=== PATIENT | female | born 1940 | race Caucasian/White ===

== ENCOUNTER → 2023-12-04 11:32 | Outpatient (REF) | payer MEDICARE, OTHER, SELFPAY ==
[2023-12-04 13:44] LABS: % Basophils 0.8 % (0-2); % Eosinophils 4.3 % (0-6); % Immature Granulocytes 0.2 % (0-0.5); % Lymphocytes 32.6 % (20.5-51.1); % Monocytes 12.3 % (1.7-9.3); % Neutrophils 49.8 % (42.2-75.2); Absolute Eosinophils 0.2 10^3/uL (0-0.7); Absolute Lymphocytes 1.7 10^3/uL (1.2-3.4); Absolute Monocytes 0.6 10^3/uL (0.1-0.6); Absolute Neutrophils 2.5 10^3/uL (1.4-6.5); Hematocrit 36.8 % (37.0-47.0); Hemoglobin 12.4 g/dL (12.0-16.0); Mean Corp Hgb Conc. 33.7 g/dL (33.0-37.0); Mean Corpuscular Hgb 31.7 pg (27.0-31.0); Mean Corpuscular Volume 94.1 fL (81.0-99.0); Mean Platelet Volume 10.3 fL (7.4-10.4); Nucleated Red Blood Cells % 0 %; Platelet Count 264 10^3/uL (130-400); Red Blood Cell Count 3.91 10^6/uL (4.20-5.40); Red Cell Dist. Width 13.4 % (11.5-14.5); White Blood Cell Count 5.1 10^3/uL (4.8-10.8)
[2023-12-04 13:50] LABS: ALT (SGPT) < 10 U/L (0-35); AST (SGOT) 25 U/L (14-36); Albumin 4.1 g/dl (3.5-5.0); Alkaline Phosphatase 68 U/L (38-126); Blood Urea Nitrogen 20 mg/dl (7-17); Calcium 9.5 mg/dl (8.4-10.2); Carbon Dioxide 32 mmol/L (22-30); Chloride 94 mmol/L (98-107); Glucose 101 mg/dl (70-99); HDL Cholesterol 53 mg/dl; LDL Cholesterol, Calculated 96 mg/dl; Potassium 4.3 mmol/L (3.5-5.1); Sodium 133 mmol/L (135-145); Total Bilirubin 0.6 mg/dl (0.2-1.3); Total Cholesterol 174 mg/dl (50-199); Total Protein 7.3 g/dl (6.3-8.2); Triglyceride 127 mg/dl (10-149); Very Low Density Lipoprotein 25 mg/dl (0-30); eGFR > 60.00
[2023-12-04 14:28] LABS: Glycohemoglobin (HgbA1c) 6.2 % (4.0-5.6)
== END ==
LOC: OLABPV 11:32
PROVIDERS: ATTENDING PHYSICIAN Physician Assistant
DX: E78.00 Pure hypercholesterolemia, unspecified (principal); K21.9 Gastro-esophageal reflux disease without esophagitis; I10 Essential (primary) hypertension; F41.9 Anxiety disorder, unspecified; F51.01 Primary insomnia; R73.03 Prediabetes; H35.50 Unspecified hereditary retinal dystrophy
CPT/HCPCS: 36415; 80053; 80061; 83036; 85025

== ENCOUNTER 2023-12-06 05:11 | Inpatient (IN) | payer MEDICARE, OTHER, SELFPAY ==
[2023-12-06] VITALS (25 sets, daily range): BP systolic 91–180; BP diastolic 48–91; PULSE 70–84; O2SAT 95–96; BMI 26.3; BMI 24.7
[2023-12-06 01:28] LABS: % Basophils 0.6 % (0-2); % Eosinophils 2.1 % (0-6); % Immature Granulocytes 0.3 % (0-0.5); % Monocytes 5.8 % (1.7-9.3); % Neutrophils 66.2 % (42.2-75.2); Absolute Basophils 0.1 10^3/uL (0-0.2); Absolute Eosinophils 0.2 10^3/uL (0-0.7); Absolute Lymphocytes 2.6 10^3/uL (1.2-3.4); Absolute Monocytes 0.6 10^3/uL (0.1-0.6); Absolute Neutrophils 6.8 10^3/uL (1.4-6.5); Hematocrit 39.6 % (37.0-47.0); Hemoglobin 14.2 g/dL (12.0-16.0); Mean Corp Hgb Conc. 35.9 g/dL (33.0-37.0); Mean Corpuscular Hgb 31.8 pg (27.0-31.0); Mean Corpuscular Volume 88.8 fL (81.0-99.0); Mean Platelet Volume 9.7 fL (7.4-10.4); Nucleated Red Blood Cells % 0 %; Platelet Count 264 10^3/uL (130-400); Red Blood Cell Count 4.46 10^6/uL (4.20-5.40); White Blood Cell Count 10.2 10^3/uL (4.8-10.8)
[2023-12-06 01:40] LABS: Lactic Acid 2.3 mmol/L (0.7-2.0)
[2023-12-06 01:41] LABS: ALT (SGPT) 13 U/L (0-35); AST (SGOT) 39 U/L (14-36); Albumin 4.1 g/dl (3.5-5.0); Alkaline Phosphatase 75 U/L (38-126); Blood Urea Nitrogen 25 mg/dl (7-17); Calcium 9.2 mg/dl (8.4-10.2); Carbon Dioxide 26 mmol/L (22-30); Chloride 97 mmol/L (98-107); Estimated Creatinine Clearance 39 ml/min; Glucose 152 mg/dl (70-99); Lipase 88 U/L (23-300); Potassium 3.8 mmol/L (3.5-5.1); Sodium 130 mmol/L (135-145); Total Bilirubin 0.5 mg/dl (0.2-1.3); Total Protein 7.3 g/dl (6.3-8.2); eGFR 55.21
[2023-12-06] MEDS: NSS 1000 IV (01:48)
--- NOTE | 2023-12-06 01:49 | ED.GENMED ---
History of Present Illness
<RAZA Hernandez - Last Filed: 12/06/23 05:44>
General
Chief Complaint: Abdominal Symptoms
Source: patient
Exam Limitations: none
Time Seen by Provider: 12/06/23 01:30
Nursing documentation reviewed up to this point in time: agreed with
Travel History
Have you had any contact with someone who has COVID-19?: No
Do you have any symptoms of coronavirus? Fever > 100 degrees, chills, cough, shortness of breath, sore throat, loss of taste or smell, muscle aches, or headache?: No
History of Present Illness
History of Present Illness:
This is a 83 year old female with HTN, HLD, diverticulosis, GERD, and a history of colitis who presents to the ED from [facility] after she found on the floor covered in feces. On arrival, she was hypotensive at 0/40 and received
700cc NSS L AC 16G. She states she has been feeling constipated and admits taking a Dulcolax. Last bowel movement was 2 days prior to today's episode. She had a sudden urge to defecate followed by a watery diarrhea. She was able to make it to the
toilet, however found herself on the floor. She had a syncopal episode. She crawled to her bed to call for help. She does not recall hitting her head, but is unable to confirm. She denies any headaches. She has had multiple episodes of known
colitis and has been evaluated and treated here. She denies any abdominal pain, nausea, vomiting, fevers, chills, bloody stools.
Past History
<RAZA Hernandez - Last Filed: 12/06/23 05:44>
Past History
ED Past Medical History: GERD, HTN, Hypercholesterolemia, Other (Diverticulosis) and Other (Colitis past nonspecific)
ED Past Surgical History: Orthopedic (Carpal tunnel surgery, left wrist tenosynovitis surgery) and Other (Benign breast cyst removed from the left breast, Vanessa stayed stripping)
Social History
Tobacco: Non-smoker
Alcohol: None
Personal:
Living: with family
Family History
Family History: Negative Hypertension or Early CAD
Review of Systems
<RAZA Hernandez - Last Filed: 12/06/23 05:44>
Review of Systems
Allergies reviewed?: Yes
All Other Systems: Not applicable
Constitutional: Reports no symptoms
EENT: Reports no symptoms
Respiratory: Reports no symptoms
Cardiac: Reports no symptoms
ABD/GI: Reports diarrhea and constipated
: Reports no symptoms
Musculoskeletal: Reports no symptoms
Skin: Reports no symptoms
Neurological: Reports other (Syncope)
Endocrine: Reports no symptoms
Hematologic/Lymphatic: Reports no symptoms
Psychiatric: Reports no symptoms
Phy Exam
<ST DavidVA - Last Filed: 12/06/23 05:44>
General Physical Exam
General Presentation: well appearing and no apparent distress
General Skin: warm and dry
General Habitus: normal and elderly
General Mental: alert
General Hydration: appears well hydrated
ENT Exam
ENT Exam: EOMI, pharynx normal, neck supple and normocephalic
Eye Exam
Eye Exam: PERRL, cornea clear and conjunctiva normal
Cardiovascular Exam
Cardiovascular Exam: regular rate/rhythm, no edema, no murmur and normal peripheral pulses
Pulmonary Exam
Pulmonary Exam: lungs clear, no respiratory distress, no rales, no crackles, no rhonchi, no stridor, no wheezing and no cough
Gastrointestinal Exam
Gastrointestinal Exam: normal bowel sounds, non tender, soft, no organomegaly, no pulsatile mass and non distended
Neurological Exam
Neurological Exam: alert, oriented x3, no motor deficits and speech normal
Musculoskeletal Exam
Musculoskeletal Exam: full ROM and no edema
Skin Exam
Skin Exam: normal color, warm/dry, no rash and no petechia
Psychiatric Exam
Psychiatric Exam: normal mood/affect
Course
<RAZA Hernandez - Last Filed: 12/06/23 05:44>
Orders/Labs/Results
Orders:
Orders
12/06/23 01:20
CBC/With Diff [Complete Blood Count/With Diff] Urgent
CMP [Comprehensive Metabolic Panel] Urgent
Lactate Level [Lactic Acid] Urgent
Lipase Urgent
Magnesium Urgent
12/06/23 01:24
EKG [Electrocardiogram (*1)] Urgent
Reason for Study: Syncope
EKG- Treatment ONCE
12/06/23 01:48
0.9% Sodium Chloride 1000 ml [Nss] 1,000 ml IV BOLUS
12/06/23 01:51
STOOL [C difficile Antigen & Toxins] Urgent
NIKKI Source: Feces/Stool
Specimen Description:
Stool Culture Urgent
NIKKI Source: Feces/Stool
Specimen Description:
12/06/23 01:54
CT Abd/pelvis W Iv Cont Urgent
Comment:
Reason For Exam: acute severe diarrhea, hypotention, syncope
CT Head W/o Iv Contrast Urgent
Comment:
Reason For Exam: syncope-(?)head injury
12/06/23 03:49
Piperacillin/Tazo 3.375 Gram [Zosyn] 3.375 gram in 50 ml IV NOW
12/06/23 04:40
Admit/Transfer Patient As Directed
Co-Sign Provider:
Level of Care: Inpatient admission
Assign to:: Telemetry
Physician / Group: Corie Gordon
Diagnosis: colitis, syncope
Reason for Telemetry: Syncope
Date to Stop Telemetry: 12/08/23
Time to Stop Telemetry: 11:00
Reason for Hospitalization: hypotension, colitis
Expected length of stay greater than two midnights?: Yes
ELOS- Estimated Length of Stay in days: 3
I certify the patient meets the requirements for IP care: Yes
12/06/23 04:49
Code Status As Directed
Resuscitation Status: Do not resuscitate
Reached after discussion with pt or family/Healthcare POA: Yes
DNR Bracelet Application ONCE
12/06/23 04:54
Add On- LAB Routine
Tests Added?: magnesium
12/06/23 05:32
Acetaminophen [Tylenol] 650 mg PO Q4HPRN PRN
Lactated Ringers [Lr] 1,000 ml IV 80 mls/hr
Lorazepam [Ativan] 0.5 mg PO PRN PRN
12/06/23 05:32
Activity As Directed
Activity Level: As Tolerated
Orthostatic Vital Signs As Directed
Orthostatic VS Frequency: Daily
Vital Signs As Directed
Frequency: Per unit guidelines
Ot Eval And Treat Routine
Pt Eval And Treat Routine
Activity Level: As Tolerated
DX Deep Vein Thrombosis Video Routine
12/06/23 Breakfast
Clear Liquid
At Your Request: Limited Participation
Basic Metabolic Panel IN AM
Complete Blood Count/With Diff IN AM
Lactate Level [Lactic Acid] Q6H
Magnesium IN AM
Troponin I Q6H
12/06/23 08:00
Escitalopram Oxalate [Lexapro] 10 mg PO DAILY
Saccharomyces Boulardii [Florastor] 250 mg PO DAILY
Timolol Maleate 1 drop LEFT EYE BID
12/06/23 10:00
Ampicillin/Sulbactam 3 G [Unasyn] 3 gm 0.9% Sodium Chloride 100 ml [Nss] 100 ml IV Q6H
12/06/23 12:00
Lactate Level [Lactic Acid] Q6H
Troponin I Q6H
12/06/23 18:00
Lactate Level [Lactic Acid] Q6H
Troponin I Q6H
Enoxaparin Sodium [Lovenox] 40 mg SC QPM
12/06/23 22:00
Famotidine [Pepcid] 40 mg PO HS
simvastatin 20 mg PO HS
12/08/23 11:00
DC Protocol for Telemetry ONCE
Abnormal Lab Results
12/06/23
01:20
MCH 31.8 H pg
(27.0-31.0)
Absolute Neuts (auto) 6.8 H 10^3/uL
(1.4-6.5)
Sodium 130 L mmol/L
(135-145)
Chloride 97 L mmol/L
(98-107)
BUN 25 H mg/dl
(7-17)
Glucose 152 H mg/dl
(70-99)
Lactic Acid 2.3 H mmol/L
(0.7-2.0)
AST 39 H U/L
(14-36)
12/06/23 01:20
12/06/23 01:20
Vital Signs
Initial and Last Documented VS:
Initial Vital Signs
Temp Pulse Resp BP Pulse Ox
96.2 F L 62 18 100/59 100
12/06/23 00:59 12/06/23 00:59 12/06/23 00:59 12/06/23 00:59 12/06/23 00:59
Last Documented Vital Signs
Temp Pulse Resp BP Pulse Ox
96.2 F L 58 13 135/65 96
12/06/23 00:59 12/06/23 05:15 12/06/23 05:15 12/06/23 05:05 12/06/23 05:15
<Alida Kumar, DO - Last Filed: 12/06/23 03:53>
Orders/Labs/Results
Orders:
Orders
12/06/23 01:20
CBC/With Diff [Complete Blood Count/With Diff] Urgent
CMP [Comprehensive Metabolic Panel] Urgent
Lactate Level [Lactic Acid] Urgent
Lipase Urgent
Magnesium Urgent
12/06/23 01:24
EKG [Electrocardiogram (*1)] Urgent
Reason for Study: Syncope
EKG- Treatment ONCE
12/06/23 01:48
0.9% Sodium Chloride 1000 ml [Nss] 1,000 ml IV BOLUS
12/06/23 01:51
STOOL [C difficile Antigen & Toxins] Urgent
NIKKI Source: Feces/Stool
Specimen Description:
Stool Culture Urgent
NIKKI Source: Feces/Stool
Specimen Description:
12/06/23 01:54
CT Abd/pelvis W Iv Cont Urgent
Comment:
Reason For Exam: acute severe diarrhea, hypotention, syncope
CT Head W/o Iv Contrast Urgent
Comment:
Reason For Exam: syncope-(?)head injury
12/06/23 03:49
Piperacillin/Tazo 3.375 Gram [Zosyn] 3.375 gram in 50 ml IV NOW
12/06/23 04:40
Admit/Transfer Patient As Directed
Co-Sign Provider:
Level of Care: Inpatient admission
Assign to:: Telemetry
Physician / Group: Corie Gordon
Diagnosis: colitis, syncope
Reason for Telemetry: Syncope
Date to Stop Telemetry: 12/08/23
Time to Stop Telemetry: 11:00
Reason for Hospitalization: hypotension, colitis
Expected length of stay greater than two midnights?: Yes
ELOS- Estimated Length of Stay in days: 3
I certify the patient meets the requirements for IP care: Yes
12/06/23 04:49
Code Status As Directed
Resuscitation Status: Do not resuscitate
Reached after discussion with pt or family/Healthcare POA: Yes
DNR Bracelet Application ONCE
12/06/23 04:54
Add On- LAB Routine
Tests Added?: magnesium
12/06/23 05:32
Acetaminophen [Tylenol] 650 mg PO Q4HPRN PRN
Lactated Ringers [Lr] 1,000 ml IV 80 mls/hr
Lorazepam [Ativan] 0.5 mg PO PRN PRN
12/06/23 05:32
Activity As Directed
Activity Level: As Tolerated
Orthostatic Vital Signs As Directed
Orthostatic VS Frequency: Daily
Vital Signs As Directed
Frequency: Per unit guidelines
Ot Eval And Treat Routine
Pt Eval And Treat Routine
Activity Level: As Tolerated
DX Deep Vein Thrombosis Video Routine
12/06/23 Breakfast
Clear Liquid
At Your Request: Limited Participation
Basic Metabolic Panel IN AM
Complete Blood Count/With Diff IN AM
Lactate Level [Lactic Acid] Q6H
Magnesium IN AM
Troponin I Q6H
12/06/23 08:00
Escitalopram Oxalate [Lexapro] 10 mg PO DAILY
Saccharomyces Boulardii [Florastor] 250 mg PO DAILY
Timolol Maleate 1 drop LEFT EYE BID
12/06/23 10:00
Ampicillin/Sulbactam 3 G [Unasyn] 3 gm 0.9% Sodium Chloride 100 ml [Nss] 100 ml IV Q6H
12/06/23 12:00
Lactate Level [Lactic Acid] Q6H
Troponin I Q6H
12/06/23 18:00
Lactate Level [Lactic Acid] Q6H
Troponin I Q6H
Enoxaparin Sodium [Lovenox] 40 mg SC QPM
12/06/23 22:00
Famotidine [Pepcid] 40 mg PO HS
simvastatin 20 mg PO HS
12/08/23 11:00
DC Protocol for Telemetry ONCE
Abnormal Lab Results
12/06/23
01:20
MCH 31.8 H pg
(27.0-31.0)
Absolute Neuts (auto) 6.8 H 10^3/uL
(1.4-6.5)
Sodium 130 L mmol/L
(135-145)
Chloride 97 L mmol/L
(98-107)
BUN 25 H mg/dl
(7-17)
Glucose 152 H mg/dl
(70-99)
Lactic Acid 2.3 H mmol/L
(0.7-2.0)
AST 39 H U/L
(14-36)
12/06/23 01:20
12/06/23 01:20
Vital Signs
Initial and Last Documented VS:
Initial Vital Signs
Temp Pulse Resp BP Pulse Ox
96.2 F L 62 18 100/59 100
12/06/23 00:59 12/06/23 00:59 12/06/23 00:59 12/06/23 00:59 12/06/23 00:59
Last Documented Vital Signs
Temp Pulse Resp BP Pulse Ox
96.2 F L 58 13 135/65 96
12/06/23 00:59 12/06/23 05:15 12/06/23 05:15 12/06/23 05:05 12/06/23 05:15
<RAZA Hernandez - Last Filed: 12/06/23 05:44>
MDM/Problems Addressed
Differential Diagnosis Includes:
Ischemic colitis, acute mesenteric colitis, gastroenteritis, gastritis
<RAZA Hernandez - Last Filed: 12/06/23 05:44>
*Critical Care Note
Total Time (30-74mins, 75-104mins- exclusive of procedures): Not Applicable
<Alida Kumar DO - Last Filed: 12/06/23 03:53>
*Radiology
Radiology exam reviewed: radiology read reviewed
*Pulse Oximetry
Patient hypoxic: no
*EKG
Interpreted by ED Provider?: Yes
Comparison EKG: no changes (Unchanged from previous 2018)
Rate: normal
Rhythm: sinus
[place]: normal axis
Interval: normal interval
QRS Pattern: normal QRS
Ischemia: no ischemia
*Waste Management Recycling Technician Interpretation
Rate: normal
Interpretation: normal
Rhythm: sinus
ED Attending Note
<RAZA Hernandez - Last Filed: 12/06/23 05:44>
-
Portions of this chart may have been created with voice recognition software.� Occasional wrong word or��sound alike� substitutions may have occurred due to the inherent limitations of voice recognition software.
<Alida Kumar DO - Last Filed: 12/06/23 03:53>
ED Attending Note
Patient seen and examined by attending physician: Yes
I performed the substantive portion of visit, reviewed & personally made and approve the management plan that is documented in note by myself or DANE.: Yes
I performed a history and physical exam of patient and discussed management with resident, I reviewed resident's note and agree with documented findings and plan of care.: Yes
ED Attending Note:
This is an 83-year-old woman who resides in independent living at [facility]. She has history of hypertension, hyperlipidemia and previous hospitalizations for acute colitis most recently 2018.
She admits to feeling perhaps somewhat constipated yesterday after not having a bowel movement for 2 days and took 1 dose of stool softener. Tonight she developed acute nonbloody diarrhea accompanied with lightheadedness and suffered a syncopal
episode while sitting on the toilet. She arrives via EMS after being found lying on the floor of the bathroom, hypotensive with prehospital blood pressure 50/40. IV established and she received 700 cc normal saline bolus prehospital.
Patient does not believe she struck her head, she denies headache, denies neck nor back pain, denies chest pain or shortness of breath. She denies fever nor chills. She does admit to intermittent mild abdominal discomfort but denies abdominal
pain. She denies hematochezia, denies nausea nor vomiting.
No recent antibiotic use nor recent travel.
No known close contacts with similar symptoms.
According to ED nursing staff patient has passed exorbitant amount of liquid nonbloody stool.
GENERAL: 83-year-old woman appears her stated age, awake and alert, oriented x 3, moderately ill in appearance. Easily communicative.
EYE: anicteric. The head is normocephalic, atraumatic.
NECK: Supple, nontender, no meningismus, no significant adenopathy.
ENT: oral mucosa is moist. No rhinorrhea. TMs are clear bilaterally.
CARDIAC: Regular rate and rhythm. no murmur.
LUNGS: Clear breath sounds bilaterally, no acute respiratory distress, no wheezes/rales/rhonchi
ABDOMEN: Soft, nondistended, without focal tenderness, no r/g, no cvat. normoactive BS.
NEUROLOGICAL: Alert and oriented x3, no focal neuro deficits.
SKIN: Warm and dry, normal color, skin intact. No rash.
MUSCULOSKELETAL: No C/C/E. peripheral pulses are full and equal b/l. No palpable tenderness.
PSYCH: Normal and appropriate interaction.
Concern for acute colitis, gastroenteritis, ischemic bowel. Concern for acute dehydration/acute kidney injury, electrolyte abnormality. Concern for hypovolemic shock, septic shock.
Will initiate IV fluid resuscitation and plan for CT abdomen pelvis with IV contrast.
Due to syncopal event, advanced age and unclear history of head injury will check CT of the head as well.
Syncope appears vasovagal/hypovolemia in nature but must consider tacky arrhythmia, will continue cardiac cath tech.
Will check stool cultures.
Due to continued diarrhea, syncope, hypotension/significantly abnormal vital signs patient will require acute hospitalization.
12/06/2023 0350 AM
Blood pressure is markedly improved after IV fluid bolus.
No further diarrhea since my initial evaluation and abdomen is soft without appreciable tenderness.
CAT scan shows acute gastroenteritis/colitis with diarrhea. No obstruction or perforation. Diffuse aortic atherosclerotic disease.
Will initiate IV antibiotics for potential infectious colitis.
Lactic acid mildly elevated at 2.3. There is certainly some concern for ischemic bowel but enteritis seems global and not watershed in nature.
Will continue IV fluids and admit to hospitalist service.
Discharge Plan
Departure
Patient Disposition: Admit
Date of Disposition: 12/06/23
Time of Disposition: 03:53
Admit to doctor: Evan
Presentation/result/management discussed w/ accepting MD/DO: Hospitalist
Condition: Serious
Discharge Problem:
Acute colitis, Syncope
Interventions
Interventions:
*Risk Screen - Suicide Last Done: 12/06/23 00:59
*General Assessment Last Done: 12/06/23 00:59
*Neglect/Abuse Screening Last Done: 12/06/23 00:59
ED- Fall Risk Assessment Last Done: 12/06/23 01:30
*ED COVID-19 Vaccine History Last Done: 12/06/23 01:38
*Nursing Disposition Last Done: 12/06/23 05:37
SX-Jtajam-Bpemlbcsvf Assessment Last Done: 12/06/23 01:30
Discharge Date and Time
Discharge Date/Time: 12/06/23 05:38
--- NOTE | 2023-12-06 01:56 | EDRN ---
Spoke with pts son Kulwinder on the phone and updated on pts condition.
[2023-12-06] MEDS: ZOSYN 50 IV (04:03)
--- NOTE | 2023-12-06 04:20 | HPS.HSE ---
Family Physician
-
Family Physician: Mitzy Herron
Chief Complaint
-
gastroenteritis, syncope
History of Present Illness
Ms. Rosemary Bob is a 83 yo woman with hx HTN, HLD, GERD presents from [facility] after a syncopal episode. Patient was found on floor in feces.
Patient states she was feeling well until 10 PM at night when started to have abdominal upset. She went to the bathroom and had a bowel movement but then passed out. She was able to crawl to her bed and then call for help. Denies preceding chest
pain or palpitations.
No nausea or vomiting. Continues to have abdominal discomfort but denies significant pain. No fevers. She reports chills and diaphoresis during episode. No shortness of breath.
Medical History
Past Medical History
Past Medical History: Reports GERD, HTN and Hypercholesterolemia
Past Surgical History: Reports Orthopedic
Social History
Tobacco: Non-smoker
Alcohol: None
Family History
Family History: Not pertinent
Allergies / Home Medications
Allergies reflects when Allergies were last updated in [employer].
Home Medications with original date entered in [employer]
Allergy/Medication List:
Allergies
Allergy/AdvReac Type Severity Reaction Status Date / Time
No Known Allergies Allergy Verified 12/06/23 01:09
Home Medications
Multiple Vitamins 1 tab PO DAILY 01/12/11
famotidine 40 mg tablet 40 mg PO HS 01/12/11
hydrochlorothiazide 25 mg tablet 25 mg PO DAILY 01/12/11
lisinopril 20 mg tablet 40 mg PO DAILY 01/12/11
simvastatin 20 mg tablet 20 mg PO HS 01/12/11
Timolol Maleate 1 drp LEFT EYE BID 11/24/17
lorazepam 1 mg tablet 1 mg PO PRN PRN sleep 11/24/17
Saccharomyces boulardii 250 mg capsule 250 mg PO DAILY 11/27/17
polyethylene glycol 3350 17 gram oral powder packet 17 grams PO DAILYPRN PRN constipation 11/27/17
brimonidine 12/06/23
escitalopram oxalate 10 mg tablet (Lexapro) 10 mg PO DAILY 12/06/23
Review of Systems
-
History Source: Patient
A 12 point ROS was completed and negative except as noted: Yes
Physical Exam
Vital Signs
Vital Signs
Temp Pulse Resp BP Pulse Ox
96.2 F L 57 13 114/66 98
12/06/23 00:59 12/06/23 03:30 12/06/23 03:30 12/06/23 03:30 12/06/23 03:30
Physical Exam
General: No Apparent Distress
HEENT: PERRLA
Respiratory: Clear; No Wheezes
Cardiac: S1/S2 and Regular Rhythm
GI: Soft and Other (mildly tender lower quadrants, no rebound or guarding )
Musculoskeletal: No Edema
Skin: Warm and Dry; No Rash
Neuro: AO x 3
Psych: Calm
Laboratory Results
-
12/06/23 01:20
12/06/23 01:20
Laboratory Results
Lactic Acid 2.3 mmol/L (0.7-2.0) H 12/06/23 01:20
Total Bilirubin 0.5 mg/dl (0.2-1.3) 12/06/23 01:20
AST 39 U/L (14-36) H 12/06/23 01:20
ALT 13 U/L (0-35) 12/06/23 01:20
Alkaline Phosphatase 75 U/L (38-126) 12/06/23 01:20
Lipase 88 U/L (23-300) 12/06/23 01:20
Data Reviewed
-
Diagnostic Radiology: Report Reviewed by me
Lab Data: Labs Reviewed by me
Impression/Plan
-
Ms. Rosemary Bitsko is a 83 yo woman with hx HTN, HLD, GERD presents from [facility] after a syncopal episode. Patient was found on floor in feces.
Triage VS: T 96.2, P 62, RR 18, BP 100/59, SpO2 100%
LABS WBC 10.2, Hg 14.2, PLT 264, Na 130, K+ 3.8, BUN 25, Cr 1.0, Glucose 152, Lactate 2.3, T. Bili 0.5, AST 39, ALT 13, Alk Phs 75
Patient was hypotensive post episode, responded to fluids
CT Head: no hemorrhage. Sequelae of chronic microvascular disease. Global parenchymal volume loss
CT Abdomen/Pelvis: Acute gastroenteritis and colitis with diarrhea. No obstruction or perforation. No cholecystitis or pancreatitis. No obstructing renal stone. Diffuse aortic atherosclerotic disease. Lung bases clear.
Syncope
Hypotension
Lactic Acidosis
-syncope in setting of diarrhea; also with low BP on arrival responsive to fluids. Etiology vasovagal versus orthostasis/dehydration
-s/p IVF in ER
-CT showing e/o acute gastroenteritis and colitis
-F/U stool culture and C. Diff - testing ordered in ER
-will continue IV abx, start Unasyn
-orthostats
-IVF
-PT/OT
-trend Lactate
-trend Troponin
Essential Hypertension
-hold DIVISION ENGINEER HCTZ and Lisinopril
Hyponatremia
-IVF given low BP, hold DIVISION ENGINEER HCTZ
Hyperlipidemia
-DIVISION ENGINEER Simvastatin
DVT PPx Lovenox subQ
DNR - confirmed on admission
[2023-12-06 05:35] LABS: Magnesium 2.1 mg/dl (1.6-2.3)
[2023-12-06] MEDS: LR 1000 IV (06:09)
[2023-12-06] MEDS: TYLENOL 650 MG PO ×2 (06:16→21:25)
[2023-12-06 06:17] LABS: Lactic Acid 1.7 mmol/L (0.7-2.0)
[2023-12-06 06:24] LABS: % Basophils 0.3 % (0-2); % Eosinophils 0.2 % (0-6); % Immature Granulocytes 0.3 % (0-0.5); % Lymphocytes 6.7 % (20.5-51.1); % Monocytes 7.8 % (1.7-9.3); % Neutrophils 84.7 % (42.2-75.2); Absolute Basophils 0.1 10^3/uL (0-0.2); Absolute Immature Granulocytes 0.1 10^3/uL (0-0.05); Absolute Monocytes 1.1 10^3/uL (0.1-0.6); Absolute Neutrophils 12.1 10^3/uL (1.4-6.5); Hematocrit 39.1 % (37.0-47.0); Hemoglobin 13.4 g/dL (12.0-16.0); Mean Corp Hgb Conc. 34.3 g/dL (33.0-37.0); Mean Corpuscular Hgb 31.6 pg (27.0-31.0); Mean Corpuscular Volume 92.2 fL (81.0-99.0); Mean Platelet Volume 9.9 fL (7.4-10.4); Nucleated Red Blood Cells % 0 %; Platelet Count 250 10^3/uL (130-400); Red Blood Cell Count 4.24 10^6/uL (4.20-5.40); White Blood Cell Count 14.4 10^3/uL (4.8-10.8)
[2023-12-06 06:30] LABS: Troponin I < 0.012 ng/ml
[2023-12-06 06:54] LABS: Blood Urea Nitrogen 25 mg/dl (7-17); Carbon Dioxide 25 mmol/L (22-30); Chloride 99 mmol/L (98-107); Estimated Creatinine Clearance 50 ml/min; Glucose 131 mg/dl (70-99); Magnesium 2.1 mg/dl (1.6-2.3); Potassium 3.6 mmol/L (3.5-5.1); Sodium 133 mmol/L (135-145); eGFR > 60.00
--- NOTE | 2023-12-06 07:32 | W.PN.UPDATE ---
Update Note
Progress Note Update
This is a nonbillable note on a patient that was admitted this morning by the associate consulting engineer and I am seen on morning rounds
Patient examined and interviewed/states she still having some loose bowels unclear if sent to lab
Abdomen is soft and nontender presently except the left lower quadrant
Official report CT of the abdomen not available yet but [place] text from radiology relates a portion of nondistended sigmoid colon/some colitis noted which she has had in the past
Lactic acidosis seems to be resolving although white count trending up/troponin normal thus far
Continue IV fluids depending on progress and stool results may need to get GI evaluation for possible colonoscopy
[2023-12-06] MEDS: ZESTRIL 40 MG PO (09:18)
[2023-12-06] MEDS: TIMOPTIC 0.5% OPHTHALMIC SOLUTION 1 DROP LEFT EYE ×2 (09:19→21:18)
[2023-12-06] MEDS: PEPCID 20 MG PO (09:19)
[2023-12-06] MEDS: LEXAPRO 10 MG PO (09:19)
[2023-12-06] MEDS: FLORASTOR 250 MG PO (09:19)
[2023-12-06] MEDS: UNASYN IV ×3 (09:19→21:17)
[2023-12-06 12:16] LABS: Lactic Acid 2.3 mmol/L (0.7-2.0)
[2023-12-06 12:22] LABS: Troponin I < 0.012 ng/ml
--- NOTE | 2023-12-06 15:19 | CM ---
Patient lives at [facility] Independent living in a 1st floor, 1 story apartment with no stairs to enter, DRILLER MACHINE was independent, drove, no DME and no in-home services, no psychiatric hospitalizations. PCP Dr. Mitzy Herron. Discharge Plan of Care:
Home with HH VN, PT/OT. CM will check if [facility] can provide services if not, patient preference is HH.
[2023-12-06] MEDS: LOVENOX 40 MG SC (17:37)
[2023-12-06 18:40] LABS: Lactic Acid 2.4 mmol/L (0.7-2.0)
[2023-12-06 19:15] LABS: Troponin I < 0.012 ng/ml
[2023-12-06] MEDS: LIPITOR 10 MG PO (21:18)
[2023-12-06] MEDS: ATIVAN 0.5 MG PO (21:23)
[2023-12-06 23:32] LABS: Lactic Acid 0.8 mmol/L (0.7-2.0)
[2023-12-07] VITALS (8 sets, daily range): BP systolic 153–204; BP diastolic 72–101; PULSE 65–72; O2SAT 98
[2023-12-07] MEDS: UNASYN IV ×2 (02:46→08:29)
[2023-12-07 06:59] LABS: Hematocrit 32.7 % (37.0-47.0); Hemoglobin 11.4 g/dL (12.0-16.0); Mean Corp Hgb Conc. 34.9 g/dL (33.0-37.0); Mean Corpuscular Hgb 31.8 pg (27.0-31.0); Mean Corpuscular Volume 91.1 fL (81.0-99.0); Mean Platelet Volume 10.2 fL (7.4-10.4); Platelet Count 242 10^3/uL (130-400); Red Blood Cell Count 3.59 10^6/uL (4.20-5.40); Red Cell Dist. Width 13.4 % (11.5-14.5); White Blood Cell Count 8.9 10^3/uL (4.8-10.8)
[2023-12-07 07:22] LABS: ALT (SGPT) 12 U/L (0-35); AST (SGOT) 28 U/L (14-36); Albumin 3.7 g/dl (3.5-5.0); Alkaline Phosphatase 58 U/L (38-126); Blood Urea Nitrogen 10 mg/dl (7-17); Calcium 8.9 mg/dl (8.4-10.2); Carbon Dioxide 30 mmol/L (22-30); Chloride 101 mmol/L (98-107); Estimated Creatinine Clearance 57 ml/min; Glucose 101 mg/dl (70-99); Potassium 3.3 mmol/L (3.5-5.1); Sodium 135 mmol/L (135-145); Total Bilirubin 0.7 mg/dl (0.2-1.3); Total Protein 6.6 g/dl (6.3-8.2); eGFR > 60.00
--- NOTE | 2023-12-07 08:00 | W.PN.HOSP.TC ---
Addendum entered and electronically signed by Zachariah Israel MD 12/17/23 11:43:
Hypokalemia
Original Note:
Today's Communication/Plan
-
Advance diet to full liquids
Replete potassium
Discontinue IV fluids
Discontinue IV antibiotic
Increase activity PT OT eval
Assessment / Plan
Assessment / Plan
Ms. Rosemary Bob is a 83 yo woman with hx HTN, HLD, GERD presents from [facility] after a syncopal episode. Patient was found on floor in feces.
Patient states she was feeling well until 10 PM at night when started to have abdominal upset. She went to the bathroom and had a bowel movement but then passed out. She was able to crawl to her bed and then call for help. Denies preceding chest
pain or palpitations.
No nausea or vomiting. Continues to have abdominal discomfort but denies significant pain. No fevers. She reports chills and diaphoresis during episode. No shortness of breath.
CT Head: no hemorrhage. Sequelae of chronic microvascular disease. Global parenchymal volume loss
CT Abdomen/Pelvis: Acute gastroenteritis and colitis with diarrhea. No obstruction or perforation. No cholecystitis or pancreatitis. No obstructing renal stone. Diffuse aortic atherosclerotic disease. Lung bases clear.
Syncope/probably vasovagal in origin or fluid shifts from hypotension
Hypotension resolved
Lactic Acidosis resolved
-syncope in setting of diarrhea; also with low BP on arrival responsive to fluids. Etiology vasovagal versus orthostasis/dehydration
-s/p IVF in ER/advance to full liquids for lunch
-CT showing e/o acute gastroenteritis and colitis
-F/U stool culture and C. Diff -all negative
-Will discontinue Zosyn at this point
-orthostats
-IVF
-PT/OT
-trend Lactate /leukocytosis has resolved
-trend Troponin within normal limits
Essential Hypertension
-hold TANKER DRIVER HCTZ and Lisinopril
Hyponatremia
-IVF given low BP, hold TANKER DRIVER HCTZ
Hyperlipidemia
-TANKER DRIVER Simvastatin
DVT PPx Lovenox subQ
DNR - confirmed on admission
Anticipated Discharge: Within 24 hours
Subjective/Interval History
-
Date of Service: December 07, 2023
No longer having any loose bowel movements or abdominal pain tolerated clear liquids
Objective Data
-
Labs:
Laboratory Results
12/07/23
06:11
WBC 8.9
Hgb 11.4 L
Hct 32.7 L
Plt Count 242
Sodium 135
Potassium 3.3 L
Chloride 101
Carbon Dioxide 30
BUN 10
Creatinine 0.7
Glucose 101 H
Calcium 8.9
Total Bilirubin 0.7
AST 28
ALT 12
Alkaline Phosphatase 58
Vital Signs:
Vital Signs
Temp Pulse Resp BP Pulse Ox
98.7 F 80 18 181/96 98
12/07/23 07:50 12/07/23 07:50 12/07/23 07:50 12/07/23 07:50 12/07/23 07:50
I&O
12/06/23 12/07/23 12/08/23
06:59 06:59 06:59
Intake Total 1380 / 1380
Balance 1380 / 1380
Review of Systems
-
History Source: Patient
EENT: Reports No Symptoms Reported
Respiratory: Reports No Symptoms
Cardiac: Reports No Symptoms
Abdomen/GI: Reports No Symptoms
Physical Exam
-
General: Well Developed
HEENT: Normocephalic
Respiratory: Clear to Auscultation
Cardiac: Regular Rhythm
Rectal: Brown
Genito-urinary: Costovertebral Angle Tend
Skin: Warm
Neuro: Awake, Alert and Oriented
Psych: Calm
Data Reviewed
-
Total Time Spent with Patient (in minutes): 56
Labs: Labs Reviewed by me (Stool specimens all negative for growth including norovirus Salmonella Shigella and Campylobacter and C. difficile)
[2023-12-07] MEDS: LEXAPRO 10 MG PO (08:13)
[2023-12-07] MEDS: PEPCID 20 MG PO (08:13)
[2023-12-07] MEDS: FLORASTOR 250 MG PO (08:13)
[2023-12-07] MEDS: TIMOPTIC 0.5% OPHTHALMIC SOLUTION 1 DROP LEFT EYE ×2 (08:13→20:01)
[2023-12-07] MEDS: ZESTRIL 40 MG PO (08:13)
[2023-12-07] MEDS: KLOR-CON 20 MEQ PO (08:28)
--- NOTE | 2023-12-07 10:18 | PN.CDI ---
CDI
- -
CDI:
Physician Documentation Request
Admit Date: 12/06/23 05:11
Dear Doctor Jhonatan,
Patient admitted for syncope.
12/06 Hospitalist PN: 'Replete potassium'
12/06 Potassium level: 3.3
5/ Potassium chloride 20 meq PO administered
Based on the above, could you clarify in the progress notes, the appropriate diagnosis, if significant, that supports the above abnormalities and additional evaluation, monitoring and/or treatment rendered:
Hypokalemia
Abnormal lab value insignificant
Other
Use of terms such as suspected, likely, concern for, or probable (associated with a specific diagnosis that is being evaluated, monitored, or treated as if it exists) are acceptable and can be coded in the inpatient setting, when documented at the
time of discharge.
Thank you,
Simran Nielsen RN, BSN
CDI Specialist
Available via [employer] text
Please use your independent medical judgment in providing your response.
[2023-12-07] MEDS: ORETIC 25 MG PO (12:24)
[2023-12-07] MEDS: LOVENOX 40 MG SC (17:39)
--- NOTE | 2023-12-07 18:05 | PTCARENOTE ---
Patient bp 168/86, 69. Denies chest pain,sob and dizziness at this time. aware
--- NOTE | 2023-12-07 18:38 | CM ---
Therapy recommendation changed to home with no needs. HH notified via [facility].
[2023-12-07] MEDS: LIPITOR 10 MG PO (21:59)
[2023-12-07] MEDS: ATIVAN 0.5 MG PO (21:59)
[2023-12-07] MEDS: TYLENOL 650 MG PO (21:59)
[2023-12-08 03:21] VITALS: BP 148/93
[2023-12-08 07:05] VITALS: BP 176/88
[2023-12-08 07:10] LABS: Hematocrit 35.2 % (37.0-47.0); Mean Corp Hgb Conc. 34.1 g/dL (33.0-37.0); Mean Corpuscular Hgb 31.9 pg (27.0-31.0); Mean Corpuscular Volume 93.6 fL (81.0-99.0); Mean Platelet Volume 10.3 fL (7.4-10.4); Platelet Count 249 10^3/uL (130-400); Red Blood Cell Count 3.76 10^6/uL (4.20-5.40); Red Cell Dist. Width 13.2 % (11.5-14.5); White Blood Cell Count 8.8 10^3/uL (4.8-10.8)
--- NOTE | 2023-12-08 07:27 | W.DS.TRANS ---
DC Summary - [facility]
-
Discharge Instructions:
Discharge Diagnosis/Procedures Viral gastroenteritis/colitis
Syncope
Lactic acidosis and dehydration orthostatic
hypotension resolved
Diet As tolerated
Activity No restrictions
Driving Restrictions As prior to admission
Instructions:
Stand-Alone Forms:
Changes to Home Medications: No
Discharge Medications:
DC Medications w/original date entered in [facility]
Multiple Vitamins 1 tab PO DAILY Supplement 01/12/11
famotidine 40 mg tablet 40 mg PO HS Gastrointestinal Issue 01/12/11
hydrochlorothiazide 25 mg tablet 25 mg PO DAILY Blood Pressure 01/12/11
lisinopril 20 mg tablet 40 mg PO DAILY Blood Pressure 01/12/11
simvastatin 20 mg tablet 20 mg PO HS High Cholesterol 01/12/11
Timolol Maleate 1 drp LEFT EYE BID Eye Condition 11/24/17
lorazepam 1 mg tablet 1 mg PO PRN PRN sleep 11/24/17
Saccharomyces boulardii 250 mg capsule 250 mg PO DAILY 11/27/17
polyethylene glycol 3350 17 gram oral powder packet 17 grams PO DAILYPRN PRN constipation 11/27/17
brimonidine Eye Condition 12/06/23
escitalopram oxalate 10 mg tablet (Lexapro) 10 mg PO DAILY Depression 12/06/23
Home Medication Changes
Pending Results: No
[2023-12-08 07:36] LABS: Blood Urea Nitrogen 9 mg/dl (7-17); Calcium 9.6 mg/dl (8.4-10.2); Carbon Dioxide 28 mmol/L (22-30); Chloride 99 mmol/L (98-107); Estimated Creatinine Clearance 57 ml/min; Glucose 94 mg/dl (70-99); Potassium 3.8 mmol/L (3.5-5.1); Sodium 135 mmol/L (135-145); eGFR > 60.00
[2023-12-08] MEDS: ORETIC 25 MG PO (08:12)
[2023-12-08] MEDS: PEPCID 20 MG PO (08:13)
[2023-12-08] MEDS: FLORASTOR 250 MG PO (08:13)
[2023-12-08] MEDS: TIMOPTIC 0.5% OPHTHALMIC SOLUTION 1 DROP LEFT EYE (08:13)
[2023-12-08] MEDS: ZESTRIL 40 MG PO (08:14)
[2023-12-08] MEDS: LEXAPRO 10 MG PO (08:14)
--- NOTE | 2023-12-08 09:00 | PTCARENOTE ---
Patient refused am orthostatics. No s/s of distress noted at this time. md lang
--- NOTE | 2023-12-08 09:27 | CM ---
CM following re: discharge planning.
Reviewed pt's chart, met with pt and left a message to pt's son Jorje.
Discharge order noted. Pt is aware, expressed her agreement with discharge. IMM reviewed, placed on chart, pt has a copy.
Per PT and OT pt has no skilled needs, independent with functional ability.
Pt reports she lives in [facility] and [facility] transportation will transport her home. CM called [facility] department [phone], spoke to it sales representative Ayaka and she confirmed that pt will be picked up
at 11:30 a.m today. Pt must be on the lobby by 11:30 a.m. RN is aware.
D/C plan: return back to her independent apartment at [facility]. [facility] wheelchair van arranged.
--- NOTE | 2023-12-08 11:09 | W.DCSUMMARY ---
Discharge Summary
Discharge Data
Date of Admission: 12/06/23
Date of Discharge: 12/08/23
Total time spent discharging patient (in min): 45
-
Pending Results: No
Hospital Course
Ms. Rosemary Bob is a 83 yo woman with hx HTN, HLD, GERD presents from [facility] after a syncopal episode. Patient was found on floor in feces.
Patient states she was feeling well until 10 PM at night when started to have abdominal upset. She went to the bathroom and had a bowel movement but then passed out. She was able to crawl to her bed and then call for help. Denies preceding chest
pain or palpitations.
No nausea or vomiting. Continues to have abdominal discomfort but denies significant pain. No fevers. She reports chills and diaphoresis during episode. No shortness of breath.
Patient was admitted to the [facility] unit under the hospitalist medicine team with a presumptive diagnosis of probable gastroenteritis presumably viral origin causing a vasovagal vagal syncopal event
CT scan of the abdomen pelvis showed acute gastroenteritis and colitis with diarrheal stools no obstruction or perforation no cholecystitis or pancreatitis no obstructing renal stone lung bases were clear she also underwent a CT of the head which
was unremarkable except for microvascular changes and volume loss.
Initial laboratory profiling did show an elevation in her BUN of 25 out of proportion and consistent with a prerenal presentation her hydrochlorothiazide and her ELVIN inhibitor was held due to soft BP initially.
She underwent stools and all of which proved negative for growth including Salmonella Campylobacter Shigella norovirus and Clostridium Dificid
She responded with IV fluids with return to baseline renal status and electrolyte status with eventual leukocytosis also lack of a febrile course and the patient's abdominal status in regards to any further diarrhea was self-limited and really
nonexistent after initial 24 hours.
At this point she is medically stable for discharge we discussed some of her concerns in relation to her chronic constipation and my belief that this was a viral gastroenteritis and she should keep ahead of her constipation issues by using something
like MiraLAX on a daily basis. Prior to her discharge her lisinopril was resumed and at discharge her hydrochlorothiazide was also resumed with stable renal status.
Discharge Plan
-
Patient Disposition: Home (Routine Discharge)
Discharge Diagnosis/Procedures: Viral gastroenteritis/colitis
Syncope
Lactic acidosis and dehydration orthostatic hypotension resolved
Diet: As tolerated
Activity: No restrictions
Driving Restrictions: As prior to admission
Referrals:
Mitzy Herron MD [Family Provider] -
Prescriptions:
Continued
lisinopril 20 MG tablet
40 mg PO DAILY
famotidine 40 MG tablet
40 mg PO HS
simvastatin 20 MG tablet
20 mg PO HS
hydrochlorothiazide 25 MG tablet
25 mg PO DAILY
Multiple Vitamins
1 tab PO DAILY
Timolol Maleate
1 drp LEFT EYE BID
lorazepam 1 MG tablet
1 mg PO PRN PRN (Reason: sleep)
polyethylene glycol 3350 17 GRAMS powder in packet
17 grams PO DAILYPRN PRN (Reason: constipation) 0RF
Saccharomyces boulardii 250 MG capsule
250 mg PO DAILY 0RF
escitalopram oxalate [Lexapro] 10 mg Tablet
10 mg PO DAILY
brimonidine
Rx Instructions:
unsure of dose
Discharge Orders:
Discharge Patient (As Directed); Ordered 12/08/23
Ordered By: Zachariah Israel
Discharge Date and Time
Print Language: AFGHAN
== END 2023-12-08 11:25 | disposition home or self-care (01) | DRG 392 ==
LOC: 2 NORTH 05:11
PROVIDERS: ADMITTING PHYSICIAN Student in an Organized Health Care Education/Training Program; ATTENDING PHYSICIAN Internal Medicine; EMERGENCY PHYSICIAN Emergency Medicine; FAMILY PHYSICIAN Family Medicine
DX: A08.4 Viral intestinal infection, unspecified (principal); E87.1 Hypo-osmolality and hyponatremia; E87.20 Acidosis, unspecified; I10 Essential (primary) hypertension; E87.6 Hypokalemia; K21.9 Gastro-esophageal reflux disease without esophagitis; E78.00 Pure hypercholesterolemia, unspecified; K57.30 Diverticulosis of large intestine without perforation or abscess without bleeding; I95.1 Orthostatic hypotension; Z66 Do not resuscitate
CPT/HCPCS: 36415; 70450; 74177; 80048; 80053; 80061; 83036; 83605; 83690; 83735; 84484; 85025; 85027; 93005; 96365; 97116; 97162; 97166; 99285; Q9967

== ENCOUNTER → 2024-05-14 11:42 | Outpatient (REF) | payer MEDICARE, OTHER, SELFPAY ==
[2024-05-14 11:58] LABS: % Immature Granulocytes 0.3 % (0-0.5); % Lymphocytes 28.8 % (20.5-51.1); % Monocytes 10.6 % (1.7-9.3); % Neutrophils 55.3 % (42.2-75.2); Absolute Basophils 0.1 10^3/uL (0-0.2); Absolute Eosinophils 0.3 10^3/uL (0-0.7); Absolute Lymphocytes 1.8 10^3/uL (1.2-3.4); Absolute Monocytes 0.7 10^3/uL (0.1-0.6); Absolute Neutrophils 3.5 10^3/uL (1.4-6.5); Hematocrit 38.4 % (37.0-47.0); Hemoglobin 13.6 g/dL (12.0-16.0); Mean Corp Hgb Conc. 35.4 g/dL (33.0-37.0); Mean Corpuscular Hgb 31.6 pg (27.0-31.0); Mean Corpuscular Volume 89.1 fL (81.0-99.0); Mean Platelet Volume 10.1 fL (7.4-10.4); Nucleated Red Blood Cells % 0 %; Platelet Count 308 10^3/uL (130-400); Red Blood Cell Count 4.31 10^6/uL (4.20-5.40); Red Cell Dist. Width 12.9 % (11.5-14.5); White Blood Cell Count 6.3 10^3/uL (4.8-10.8)
[2024-05-14 12:03] LABS: ALT (SGPT) < 10 U/L (0-35); AST (SGOT) 30 U/L (14-36); Albumin 4.7 g/dl (3.5-5.0); Alkaline Phosphatase 62 U/L (38-126); Blood Urea Nitrogen 25 mg/dl (7-17); Calcium 9.7 mg/dl (8.4-10.2); Carbon Dioxide 29 mmol/L (22-30); Chloride 97 mmol/L (98-107); Glucose 108 mg/dl (70-99); HDL Cholesterol 65 mg/dl; LDL Cholesterol, Calculated 129 mg/dl; Potassium 4.3 mmol/L (3.5-5.1); Sodium 140 mmol/L (135-145); Total Bilirubin 0.6 mg/dl (0.2-1.3); Total Cholesterol 219 mg/dl (50-199); Total Protein 8.2 g/dl (6.3-8.2); Triglyceride 126 mg/dl (10-149); Very Low Density Lipoprotein 25 mg/dl (0-30); eGFR > 60.00
[2024-05-14 12:33] LABS: TSH Reflex To Free T4 2.74 uIU/ml (0.47-4.68)
[2024-05-14 13:13] LABS: Glycohemoglobin (HgbA1c) 5.8 % (4.0-5.6)
== END ==
LOC: OLABPV 11:42
PROVIDERS: ATTENDING PHYSICIAN Family Medicine
DX: E78.00 Pure hypercholesterolemia, unspecified (principal); R73.03 Prediabetes; E87.1 Hypo-osmolality and hyponatremia; R53.83 Other fatigue; Z13.29 Encounter for screening for other suspected endocrine disorder
CPT/HCPCS: 36415; 80053; 80061; 83036; 84443; 85025

== ENCOUNTER → 2024-08-14 12:32 | Outpatient (REF) | payer MEDICARE, OTHER, SELFPAY | LOC: MRI 3T 12:32 | PROVIDERS: ATTENDING PHYSICIAN Family Medicine | DX: R25.1 Tremor, unspecified (principal) | CPT/HCPCS: 70551 ==

== ENCOUNTER → 2024-10-21 11:04 | Outpatient (REF) | payer MEDICARE, OTHER, SELFPAY ==
[2024-10-21 11:55] LABS: % Basophils 0.5 % (0-2); % Eosinophils 2.7 % (0-6); % Immature Granulocytes 0.2 % (0-0.5); % Lymphocytes 26.2 % (20.5-51.1); % Monocytes 10.4 % (1.7-9.3); Absolute Eosinophils 0.2 10^3/uL (0-0.7); Absolute Lymphocytes 1.7 10^3/uL (1.2-3.4); Absolute Monocytes 0.7 10^3/uL (0.1-0.6); Absolute Neutrophils 3.8 10^3/uL (1.4-6.5); Hematocrit 40.1 % (37.0-47.0); Hemoglobin 13.2 g/dL (12.0-16.0); Mean Corp Hgb Conc. 32.9 g/dL (33.0-37.0); Mean Corpuscular Hgb 31.5 pg (27.0-31.0); Mean Corpuscular Volume 95.7 fL (81.0-99.0); Mean Platelet Volume 9.7 fL (7.4-10.4); Nucleated Red Blood Cells % 0 %; Platelet Count 312 10^3/uL (130-400); Red Blood Cell Count 4.19 10^6/uL (4.20-5.40); Red Cell Dist. Width 13.4 % (11.5-14.5); White Blood Cell Count 6.3 10^3/uL (4.8-10.8)
[2024-10-21 11:57] LABS: ALT (SGPT) 10 U/L (0-35); AST (SGOT) 35 U/L (14-36); Albumin 4.9 g/dl (3.5-5.0); Alkaline Phosphatase 82 U/L (38-126); Blood Urea Nitrogen 26 mg/dl (7-17); Calcium 9.5 mg/dl (8.4-10.2); Carbon Dioxide 31 mmol/L (22-30); Chloride 94 mmol/L (98-107); Glucose 112 mg/dl (70-99); HDL Cholesterol 55 mg/dl; LDL Cholesterol, Calculated 112 mg/dl; Potassium 3.8 mmol/L (3.5-5.1); Sodium 136 mmol/L (135-145); Total Bilirubin 0.6 mg/dl (0.2-1.3); Total Cholesterol 202 mg/dl (50-199); Total Protein 8.4 g/dl (6.3-8.2); Triglyceride 176 mg/dl (10-149); Very Low Density Lipoprotein 35 mg/dl (0-30); eGFR > 60.00
[2024-10-21 14:29] LABS: Glycohemoglobin (HgbA1c) 5.8 % (4.0-5.6)
== END ==
LOC: OLABPV 11:04
PROVIDERS: ATTENDING PHYSICIAN Family Medicine
DX: E78.00 Pure hypercholesterolemia, unspecified (principal); R73.03 Prediabetes; E87.1 Hypo-osmolality and hyponatremia; R53.83 Other fatigue
CPT/HCPCS: 36415; 80053; 80061; 83036; 85025

== ENCOUNTER → 2025-04-02 12:01 | Outpatient (REF) | payer MEDICARE, OTHER, SELFPAY | LOC: REG 12:01 | PROVIDERS: ATTENDING PHYSICIAN Nurse Practitioner Adult Health; FAMILY PHYSICIAN Family Medicine | DX: M79.671 Pain in right foot (principal) | CPT/HCPCS: 73630 ==

== ENCOUNTER → 2025-05-26 11:52 | Outpatient (REF) | payer MEDICARE, OTHER, SELFPAY ==
[2025-05-26 12:26] LABS: Hematocrit 40.5 % (37.0-47.0); Hemoglobin 13.6 g/dL (12.0-16.0); Mean Corp Hgb Conc. 33.6 g/dL (33.0-37.0); Mean Corpuscular Volume 95.7 fL (81.0-99.0); Nucleated Red Blood Cells % 0 %; Platelet Count 316 10^3/uL (130-400); Red Cell Dist. Width 13.2 % (11.5-14.5)
[2025-05-26 12:32] LABS: ALT (SGPT) < 10 U/L (0-35); AST (SGOT) 23 U/L (14-36); Albumin 4.6 g/dl (3.5-5.0); Alkaline Phosphatase 69 U/L (38-126); Blood Urea Nitrogen 24 mg/dl (7-17); Calcium 9.6 mg/dl (8.4-10.2); Carbon Dioxide 32 mmol/L (22-30); Chloride 96 mmol/L (98-107); Glucose 114 mg/dl (70-99); HDL Cholesterol 55 mg/dl; LDL Cholesterol, Calculated 122 mg/dl; Potassium 4.2 mmol/L (3.5-5.1); Sodium 134 mmol/L (135-145); Total Protein 8.5 g/dl (6.3-8.2); Very Low Density Lipoprotein 38 mg/dl (0-30); eGFR > 60.00
[2025-05-26 15:01] LABS: Glycohemoglobin (HgbA1c) 5.9 % (4.0-5.6)
== END ==
LOC: OLABPV 11:52
PROVIDERS: ATTENDING PHYSICIAN Family Medicine
DX: R73.03 Prediabetes (principal); E87.1 Hypo-osmolality and hyponatremia; E78.00 Pure hypercholesterolemia, unspecified; Z13.29 Encounter for screening for other suspected endocrine disorder; R53.83 Other fatigue
CPT/HCPCS: 36415; 80053; 80061; 83036; 84443; 85025

== ENCOUNTER → 2025-06-09 10:58 | Outpatient (REF) | payer MEDICARE, OTHER, SELFPAY ==
[2025-06-09 13:50] LABS: Blood Urea Nitrogen 28 mg/dl (7-17); Calcium 8.9 mg/dl (8.4-10.2); Carbon Dioxide 31 mmol/L (22-30); Chloride 99 mmol/L (98-107); Glucose 110 mg/dl (70-99); Potassium 4.6 mmol/L (3.5-5.1); Sodium 134 mmol/L (135-145); eGFR > 60.00
== END ==
LOC: OLABPV 10:58
PROVIDERS: ATTENDING PHYSICIAN Family Medicine
DX: E87.1 Hypo-osmolality and hyponatremia (principal)
CPT/HCPCS: 36415; 80048